=== PATIENT | female | born 1990 | race Caucasian/White ===

== ENCOUNTER 2020-05-12 13:14 | Emergency (ER) | payer SELFPAY ==
--- NOTE | 2020-05-12 13:34 | ER Document Report ---
ED Medical Screen (RME) - General Chief Complaint: Sore Throat Stated Complaint: SORE THROAT,EAR PAIN,BODY ACHES - HPI Notes: 05/12/20 13:32 Rapid Medical Exam HPI: 29-year-old female presents to the ER complaining of right ear pain, sore throat, cough, body aches x4 days. No known contact with Covid. Denies shortness of breath, chest pain, abdominal pain, or dysuria. She did have 2 episodes of vomiting nonbloody emesis. She is on control and lmp was at the end of March. She is able to tolerate p.o. intake. Physical Exam: GENERAL: Well-appearing, well-nourished and in no acute distress. HEAD: Atraumatic, normocephalic. ENT: Moist mucous membranes. RESP: Respirations even and unlabored CV- Regular rate. NEURO: No focal neurological deficits. Moves all extremities spontaneously and on command. My involvement in this patients care was limited to a rapid initial assessment. A comprehensive ED assessment and evaluation of the patient, analysis of test results, treatment, and completion of the medical decision making process will be performed by other ER providers. 05/12/20 13:36 Physical Exam - Vital signs Vitals: Temp Pulse Resp BP Pulse Ox 98.5 F 87 14 109/69 99 05/12/20 13:18 05/12/20 13:18 05/12/20 13:18 05/12/20 13:18 05/12/20 13:18 Course - Vital Signs Vital signs: Temp Pulse Resp BP Pulse Ox 98.5 F 87 14 109/69 99 05/12/20 13:18 05/12/20 13:18 05/12/20 13:18 05/12/20 13:18 05/12/20 13:18
--- NOTE | 2020-05-12 13:40 | ER Document Report ---
ED General - General Chief Complaint: Ear Pain Stated Complaint: SORE THROAT,EAR PAIN,BODY ACHES - HPI Notes: Chief Complaint: Sore throat, right ear pain Historian: History obtained from patient HPI: This is a 29-year-old female complaining of a sore throat, right ear pain, body aches, cough x4 days. She denies fevers, shortness of breath, chest pain, abdominal pain, dysuria, vaginal discharge. No known Covid contacts or history of Covid. Patient did recently go out to eat at a restaurant with community contact. She is tolerating p.o. intake without difficulty. No treatments tried. She also had an episode yesterday of nonbloody emesis. Pt also c/o a ''bump'' in her left axilla X 1 week. says it was larger and spontaneously drained a couple days ago and is now smaller. no hx of abscess or mrsa. no treatments tried. ROS: Constitutional: no fevers. HEENT: Right ear pain, sore throat. CV: no chest pain or palpitations. Resp: Cough GI: no abdominal pain, or n/v/d. : no dysuria, hematuria, or incont. MSK: Body aches. No neck pain/stiffness Skin: left axilla abscess Neuro: no seizures, weakness, numbness, or confusion. Hematological: no ecchymosis or easy bleeding. Endocrine: no polyuria/polydipsia, no heat/cold intolerance. Psych: no SI/HI, AH/VH or memory loss. PMHx: Reviewed and agree as charted by RN. PSHx: Reviewed and agree as charted by RN. SOCHx: Reviewed and agree as charted by RN. FHX: No significant familial comorbid conditions directly related to patient complaint Current Medications: Reviewed and agree with the patient medications as charted by the RN. Allergies: Reviewed and agree with the listed allergies as charted by the RN Physical Exam: Vitals: Reviewed in chart as documented by RN. General: Alert and in NAD. Head: Normocephalic; atraumatic Eyes: PERRLA, Conjunctivae clear sclerae non-icteric bilat ENT: Tonsils 2+ and symmetrical. No erythema, exudate, vesicles. No soft palate swelling or uvular deviation. No trismus. Tolerating oral secretions. Phonation is normal. No sublingual/submental edema. Ears-canals, TMs, mastoids all WNL bilaterally Neck: trachea midline, no unilateral swelling/tenderness/lymphadenopathy CV: RRR, no M/R/G; symmetric distal pulses Resp: respirations even and unlabored, CTA bilat. no wheeze, rhonchi, stridor. GI: abd soft and nondistended. NTTP. normal BS. no masses/HSM. no CVAT bilat MSK: FROM of all extremities. No midline CTL spine tenderness/deformity Skin: left axilla- <1cm focal swelling/erythema- indurated. no fluctuance. no open wounds, no drainage/bleeding. adjacent venous thrombophlebitis. radial pulse 2+. cap refill <3 sec. sensory intact distally. FROM of LUE. Neuro: Alert and oriented X 4. following CN 2-12 intact. no unilateral weakness/numbness. Normal gait. Psych: No SI/HI or AH/VH. Medical Decision-making/Differential Diagnosis: Consider various etiologies including but not limited to Covid, URI, bronchitis, CAP, LRI, viral pneumonia, viral syndrome, UTI strep pharyngitis, viral phar yngitis, other pharyngitis, teddy-tonsillar abscess (unlikely), retropharyngeal abscess (unlikely), Acute Suppurative Otitis media, otalgia, upper respiratory infection, viral syndrome, bronchitis, sinusitis, ect Plan- will get COVID, flu, strep, UA/preg. pt is stable and in NAD. no signs of MATERIAL CHECKER. Pt is appropriate for outpt management. self quarantine at home until covid results are called to her. home care and return factors discussed. pt refuses covid testing. reason is bc shes ''scared'' to have the nasal swab. RN and myself spoke w/ pt regarding risks of having covid and not getting tested as she could pass it to people around her or she could get severe symptoms and not recieve proper treatment. pt still refuses to have covid/flu swab but will do strep test. pt has a small <1cm abscess to left axilla, differential includes adenititis. no drainable abscesss. will start her on keflex, motrin, and she is to do warm compresses. keflex will cover for possible strep throat as well. she may use otc cough meds as well. work note given. return factors discussed. pt told she may return at any time if she decided to get covid testing since she declined today. This course of action was discussed with the patient and/or family. They were amenable to this, verbalized understanding, and were without further questions. : - Related Data Allergies/Adverse Reactions: No Known Allergies Allergy (Unverified 05/12/20 13:37) Home Medications: BCP Past Medical History - Social History Smoking Status: Never Smoker Chew tobacco use (# tins/day): No Frequency of alcohol use: Occasional Drug Abuse: None Family History: Reviewed & Not Pertinent Physical Exam - Vital signs Vitals: Temp Pulse Resp BP Pulse Ox 98.5 F 87 14 109/69 99 05/12/20 13:18 05/12/20 13:18 05/12/20 13:18 05/12/20 13:18 05/12/20 13:18 Course - Vital Signs Vital signs: Temp Pulse Resp BP Pulse Ox 98.5 F 87 14 109/69 99 05/12/20 13:18 05/12/20 13:18 05/12/20 13:18 05/12/20 13:18 05/12/20 13:18 - Laboratory Results Critical Laboratory Results Reviewed: No Critical Results - Radiology Results Critical Radiology Results Reviewed: No Critical Results Discharge - Discharge Clinical Impression: Sore throat, Right ear pain, Cough, Abscess of left axilla Condition: Stable Disposition: HOME, SELF-CARE Admitting Provider: Etienne (Hospitalist) Instructions: COVID-19 Guidance for Persons Under Investigation, Abscess ([facility]), Sore Throat ([facility]) Additional Instructions: take medications as prescribed. complete entire course of antibiotics. warm compresses on left armpit abscess multiple times a day. we recommend you get covid testing. since you refused this today, if you change your mind you can return at any time to have this done. return to the ER if your condition worsens. Prescriptions: Cephalexin Monohydrate [Keflex 500 mg Capsule] 500 mg PO Q6H 7 Days #28 capsule Ibuprofen [Motrin 600 Mg Tablet] 600 mg PO TID #15 tablet Forms: Return to Work
[2020-05-12 14:21] LABS: APPEARANCE,URINE SLIGHTLY-CLOUDY; BILIRUBIN,URINE NEGATIVE (NEGATIVE); COLOR,URINE STRAW; GLUCOSE, URINE NEGATIVE (NEGATIVE); KETONES,URINE NEGATIVE (NEGATIVE); LEUKOCYTE ESTERASE,URINE NEGATIVE (NEGATIVE); NITRITE,URINE NEGATIVE (NEGATIVE); PROTEIN,URINE NEGATIVE (NEGATIVE); URINE SPECIFIC GRAVITY 1.004; UROBILINOGEN,URINE NEGATIVE mg/dL (<2.0)
[2020-05-12 15:18] VITALS: BP 112/64
== END 2020-05-12 15:12 | disposition home or self-care (01) ==
LOC: ER 13:14
DX: J02.9 Acute pharyngitis, unspecified (principal); H92.01 Otalgia, right ear; L02.412 Cutaneous abscess of left axilla; R05 Cough; R11.10 Vomiting, unspecified; Z79.3 Long term (current) use of hormonal contraceptives; Z53.29 Procedure and treatment not carried out because of patient's decision for other reasons; Z20.822 Contact with and (suspected) exposure to COVID-19
CPT/HCPCS: 81001; 81025; 87070; 87880; 99283